=== PATIENT | female | born 1995 | race Caucasian/White ===

== ENCOUNTER 2019-05-12 22:42 | Observation (INO) ==
[2019-05-13] MEDS ORDERED: Naloxone 0.4 MG/ML INJ IVP PRN (02:23)
[2019-05-13] MEDS ORDERED: Albuterol 2.5 MG/3 ML NEBULIZER IH PRN (02:26)
[2019-05-13] MEDS ORDERED: *HR* Dextrose 50 % in Water (Syg) 50 ML SYRINGE IVP PRN (05:21)
[2019-05-13] MEDS ORDERED: D5% in Water 1,000 ML IVC PRN (05:21)
[2019-05-13] MEDS ORDERED: Dextrose Gel 15 GM/37.5 ML TUBE PO PRN ×2 (05:21)
[2019-05-13] MEDS: MethylPREDNISolone 40 MG/ML VIAL IVP SCH ×3 (05:58→17:42)
[2019-05-13 07:23] LABS: Basophils % 0.1 %; Hematocrit 34.4 % (35.3-44.9); Hemoglobin 10.6 g/dL (11.5-15.4); Immature Granulocytes % 0.5 % (0-4); Lymphocytes # 1.1 K/mcL (0.6-4.6); Lymphocytes % 8.8 %; Mean Corpuscular HGB Conc 30.8 g/dL (31.6-35.5); Mean Corpuscular Hemoglobin 24.5 pg (28.0-33.3); Mean Corpuscular Volume 79.6 fL (83.0-100.0); Mean Platelet Volume 9.7 fL (9.4-12.4); Monocytes # 0.4 K/mcL (0.0-1.3); Monocytes % 3.2 %; Neutrophils # 10.5 K/mcL (1.6-8.9); Platelet Count 359 K/mcL (140-400); Red Blood Count 4.32 M/mcL (3.82-4.97); Red Cell Distribution Width 17.4 % (11.5-14.5); Segmented Neutrophils % 87.4 %
[2019-05-13 07:47] LABS: Alanine Aminotransferase 20 Units/L (7-52); Albumin 4.1 g/dL (3.5-5.7); Albumin/Globulin Ratio 1.4 (1.1-2.2); Alkaline Phosphatase 47 Units/L (34-104); Aspartate Amino Transferase 16 Units/L (13-39); BUN/Creatinine Ratio 13 (6-26); Bilirubin,Total 0.3 mg/dL (0.3-1.0); Blood Urea Nitrogen 9 mg/dL (6-20); Calcium 9.1 mg/dL (8.6-10.3); Carbon Dioxide 22 mEq/L (23-29); Chloride 108 mEq/L (98-107); Globulin 2.9 g/dL (2.4-3.5); Glucose 161 mg/dL (70-105); Magnesium 2.5 mg/dL (1.6-2.6); Osmolality,Calculated 290 (280-300); Potassium 4.2 mEq/L (3.5-5.1); Sodium 139 mEq/L (136-145); eGFR For African Americans > 60 (> 60); eGFR For Non-African Americans > 60 (> 60)
[2019-05-13] MEDS: Loratadine 10 MG TABLET PO SCH (08:51)
[2019-05-13] MEDS: Fluticasone Propionate Nasal 50 MCG/SPRAY BOTTLE NS SCH (08:51)
[2019-05-13] MEDS: Insulin LISPRO 300 UNITS/3 ML VIAL SQ SCH ×3 (08:57→17:43)
[2019-05-13] MEDS ORDERED: Tiotropium 18 MCG inhalation IH SCH (10:00)
[2019-05-13] MEDS ORDERED: Budesonide/Formoterol 160/4.5 1 PUFF INH IH SCH (10:00)
[2019-05-13] MEDS: Albuterol Neb 0.63 MG/3 ML VIAL IH SCH ×2 (10:43→22:01)
[2019-05-13] MEDS ORDERED: Insulin LISPRO 300 UNITS/3 ML VIAL SQ SCH (21:00)
[2019-05-14] MEDS: MethylPREDNISolone 40 MG/ML VIAL IVP SCH ×2 (00:45→05:42)
[2019-05-14 07:04] VITALS: BP 117/75
[2019-05-14 07:07] LABS: Hematocrit 36.5 % (35.3-44.9); Mean Corpuscular HGB Conc 30.1 g/dL (31.6-35.5); Mean Corpuscular Hemoglobin 24.7 pg (28.0-33.3); Mean Corpuscular Volume 81.8 fL (83.0-100.0); Mean Platelet Volume 10.1 fL (9.4-12.4); Platelet Count 344 K/mcL (140-400); Red Blood Count 4.46 M/mcL (3.82-4.97); Red Cell Distribution Width 17.7 % (11.5-14.5); White Blood Count 17.3 K/mcL (4.3-11.1)
[2019-05-14] MEDS: Fluticasone Propionate Nasal 50 MCG/SPRAY BOTTLE NS SCH (08:30)
[2019-05-14] MEDS: Insulin LISPRO 300 UNITS/3 ML VIAL SQ SCH (08:31)
[2019-05-14] MEDS: Loratadine 10 MG TABLET PO SCH (08:31)
[2019-05-14 10:17] LABS: BUN/Creatinine Ratio 26 (6-26); Blood Urea Nitrogen 18 mg/dL (6-20); Calcium 9.2 mg/dL (8.6-10.3); Carbon Dioxide 21 mEq/L (23-29); Chloride 106 mEq/L (98-107); Glucose 160 mg/dL (70-105); Osmolality,Calculated 289 (280-300); Potassium 4.3 mEq/L (3.5-5.1); Sodium 137 mEq/L (136-145); eGFR For African Americans > 60 (> 60); eGFR For Non-African Americans > 60 (> 60)
== END 2019-05-14 10:59 | disposition home or self-care (01) ==
LOC: 3BNU
PROVIDERS: ADMIT Family Medicine; ATTEND Family Medicine